=== PATIENT | male | born 1970 | race Caucasian/White ===

== ENCOUNTER 2020-10-11 04:11 | Inpatient (IN) | payer MEDICARE ==
[~2020-10-11] VITALS: Ht 188 cm; Wt 78.5 kg
[2020-10-11] MEDS ORDERED: GLIP10 PO (04:34)
[2020-10-11] MEDS ORDERED: TRAZ100 PO (04:34)
[2020-10-11] MEDS ORDERED: PROP60 PO (04:34)
[2020-10-11 04:50] LABS: Calcium, Ionized (POC) 1.03 mmol/L (1.10-1.46); Chloride (POC) 103 mmol/L (98-108); Creatinine (POC) 0.8 mg/dL (0.8-1.3); Glucose (ISTAT POC) 93 mg/dL (70-99); Hemoglobin (POC) 11.6 g/dL (13.5-17.5); Potassium (POC) 4.3 mmol/L (3.5-5.5); Sodium (POC) 140 mmol/L (135-148); Total CO2 (POC) 23 mmol/L (21-32)
[2020-10-11 05:38] LABS: BASOPHILS ABSOLUTE AUTO 0.11 K/mm3 (0.00-0.23); BASOPHILS PERCENT AUTO 1 % (0-2); EOSINOPHILS ABSOLUTE AUTO 0.02 K/mm3 (0.00-0.68); EOSINOPHILS PERCENT AUTO 0 % (0-6); Hematocrit 34.4 % (37.0-53.0); Hemoglobin 11.8 g/dL (13.5-17.5); IMMATURE GRAN ABSOLUTE AUTO 0.04 K/mm3 (0.00-0.10); IMMATURE GRAN PERCENT AUTO 0 % (0-1); LYMPHOCYTES ABSOLUTE AUTO 1.59 K/mm3 (0.84-5.20); LYMPHOCYTES PERCENT AUTO 16 % (21-46); MONOCYTES ABSOLUTE AUTO 0.87 K/mm3 (0.16-1.47); MONOCYTES PERCENT AUTO 9 % (4-13); Mean Corpuscular HGB 33.1 pg (26.0-34.0); Mean Corpuscular HGB Conc 34.3 g/dL (31.5-36.5); Mean Corpuscular Volume 97 fL (80-100); Mean Platelet Volume 10.4 fL (9.1-12.4); NEUTROPHILS ABSOLUTE AUTO 7.18 K/mm3 (1.96-9.15); NEUTROPHILS PERCENT AUTO 73 % (41-73); Platelet Count 292 K/mm3 (150-400); RDW Coefficient Variation 14.6 % (11.7-14.2); RDW Standard Deviation 52.4 fL (35.1-46.3); Red Blood Cell Count 3.56 M/mm3 (4.30-5.90); White Blood Cell Count 9.81 K/mm3 (4.00-11.30)
[2020-10-11 06:09] LABS: Alanine Aminotransfer (ALT/SGP 20 U/L (12-78); Albumin, Blood 2.4 g/dL (3.4-5.0); Albumin/Globulin Ratio 0.5 (0.8-1.8); Alk Phos 52 U/L (50-136); Anion Gap 11 mmol/L (6-16); Aspartate Aminotrans (AST/SGOT 38 U/L (12-37); Bilirubin, Total 0.5 mg/dL (0.1-1.0); Blood Urea Nitrogen 19 mg/dL (8-24); Bun/Creatinine Ratio 31.4 (12.0-20.0); CO2, Blood 22 mmol/L (21-32); Calcium, Blood 7.7 mg/dL (8.5-10.1); Chloride, Blood 108 mmol/L (98-108); Creatinine, Blood 0.61 mg/dL (0.60-1.20); Ethanol (Alcohol), Blood, Med 130 mg/dL; Globulin, Blood 4.4 g/dL (2.2-4.0); Glomerular Filtration Rate >60 (60-); Glucose, Blood 82 mg/dL (70-99); Potassium, Blood 4.2 mmol/L (3.5-5.5); Sodium, Blood 141 mmol/L (136-145); Total Protein, Blood 6.8 g/dL (6.4-8.2); Troponin I 0.276 ng/mL (0.000-0.040)
--- NOTE | 2020-10-11 07:14 | NUR ---
ADMIT 0645 PT TO ROOM FROM ED. PRESENTS WITH AMS BUT RESPONDING. VSS. PT TRANSFERRED TO NEW BED. BRIEF CHANGED. PLACED ON TELE. ATTEMPTED TO GO OVER HEALTH HX BUT LITTLE SUCCESS DUE TO PT MENTATION. PT PRESENTS WITH LEG WOUNDS. JANAE MORRISON PRESENT WITH PT ON ADMISSION. BED ALARM IN PLACE. BED IN LOW POSITION. REPORT GIVEN TO DOROTHY Forbes
--- NOTE | 2020-10-11 16:39 | NUR ---
UPDATE PT REMAINS ORIENTED TO SELF AND PLACE, BUT UNABLE TO STATE DATE AND NOT ALWAYS FOLLOWING DIRECTIONS. VS STABLE. HR NSR. O2 SATS REMAIN ABOVE 90% ON RA. PT COMPLAINS OF PAIN WITH REPOSITIONING, BUT TOLERABLE AT REST. WOUNDS TO FEET CLEANED THIS SHIFT. PT HAS BEEN NPO SINCE BREAKFAST AWAITING ORTHO CONSULT. REPORT GIVEN TO MEDICAL FLOOR RN. PT TAKEN UP BY BED,
--- NOTE | 2020-10-11 17:33 | NUR ---
SHIFT SUMMARY PATIENT TO THE FLOOR FROM THE PCU LATE THIS SHIFT. PATIENT ALERT, ORIENTED X 2-3 THIS SHIFT. PATIENT ORIENTED TO THE ROOM, MADE COMFORTABLE. PATIENT DENIES NEEDS AT THIS TIME. PATIENT CURRENTLY LAYING IN BED RESTING.
--- NOTE | 2020-10-12 00:43 | NUR ---
PATIENT RESTING IN BED. BANANA BAG INFUSING AT 75mL/HR. CARBIDE DIE MAKER REPORTS NSR 72. PAIN IN LEFT WRIST WITH MOVEMENT. PATIENT HAVING SOME MILD ANXIETY AND FALLS BACK TO SLEEP. CIWA IS A 2. CALL LIGHT IN REACH.
[2020-10-12 05:07] LABS: BASOPHILS ABSOLUTE AUTO 0.07 K/mm3 (0.00-0.23); BASOPHILS PERCENT AUTO 1 % (0-2); EOSINOPHILS ABSOLUTE AUTO 0.07 K/mm3 (0.00-0.68); EOSINOPHILS PERCENT AUTO 1 % (0-6); Hematocrit 32.2 % (37.0-53.0); Hemoglobin 11.1 g/dL (13.5-17.5); IMMATURE GRAN ABSOLUTE AUTO 0.03 K/mm3 (0.00-0.10); IMMATURE GRAN PERCENT AUTO 0 % (0-1); LYMPHOCYTES ABSOLUTE AUTO 1.58 K/mm3 (0.84-5.20); LYMPHOCYTES PERCENT AUTO 20 % (21-46); MONOCYTES ABSOLUTE AUTO 0.71 K/mm3 (0.16-1.47); MONOCYTES PERCENT AUTO 9 % (4-13); Mean Corpuscular HGB 32.6 pg (26.0-34.0); Mean Corpuscular HGB Conc 34.5 g/dL (31.5-36.5); Mean Corpuscular Volume 95 fL (80-100); Mean Platelet Volume 10.2 fL (9.1-12.4); NEUTROPHILS ABSOLUTE AUTO 5.44 K/mm3 (1.96-9.15); NEUTROPHILS PERCENT AUTO 69 % (41-73); Platelet Count 173 K/mm3 (150-400); RDW Coefficient Variation 13.7 % (11.7-14.2); RDW Standard Deviation 47.8 fL (35.1-46.3)
--- NOTE | 2020-10-12 05:22 | NUR ---
SHIFT SUMMARY PATIENT HAD NO ACUTE CHANGES OBSERVED. AXOX 2-3 WITH FLAT AFFECT AND WITHDRAWN. TAKES MEDICATION WHOLE WITH WATER. CBG 318. PIV REMAINS INTACT. BANANA BAG INFUSING AT 75mL/HR. REPORTS PAIN IN LW WITH MOVEMENT ONLY. USES URINAL AT BEDSIDE. BED ALARM ON FOR BEING IMPULSIVE TRYING TO BED EXIT. PATIENT REMINDED TO USE CALL LIGHT. NOT FOLLOWING DIRECTIONS AT THIS TIME. CIWA SCORE 2. DENIES SOB AND N/V. CALL LIGHT IN REACH. BED IN LOWEST POSITION. WILL CONTINUE TO MONITOR UNTIL DAY SHIFT NURSE ASSUMES CARE.
[2020-10-12 05:42] LABS: Alanine Aminotransfer (ALT/SGP 20 U/L (12-78); Albumin, Blood 2.2 g/dL (3.4-5.0); Albumin/Globulin Ratio 0.5 (0.8-1.8); Alk Phos 55 U/L (50-136); Anion Gap 7 mmol/L (6-16); Aspartate Aminotrans (AST/SGOT 32 U/L (12-37); Bilirubin, Total 1.1 mg/dL (0.1-1.0); Blood Urea Nitrogen 10 mg/dL (8-24); Bun/Creatinine Ratio 17.1 (12.0-20.0); CO2, Blood 26 mmol/L (21-32); Chloride, Blood 99 mmol/L (98-108); Creatinine, Blood 0.58 mg/dL (0.60-1.20); Globulin, Blood 4.2 g/dL (2.2-4.0); Glomerular Filtration Rate >60 (60-); Glucose, Blood 199 mg/dL (70-99); Potassium, Blood 3.6 mmol/L (3.5-5.5); Sodium, Blood 132 mmol/L (136-145); Total Protein, Blood 6.4 g/dL (6.4-8.2)
--- NOTE | 2020-10-12 14:36 | NUR ---
ALERT TO SELF. THOUGHT HE WAS IN [place]. REPEATS QUESTIONS. NO TREMORS. DENIES ETOH OR STREET DRUGS FOR "QUITE SOME TIME."WOUNDS TO FEET CLEANED AND DRY DRESSING APPLIED. WOUND TO MEDIAL RT FOOT ODIFEROUS. PATIENT AWARE TO BE D'C AND WE ARE LOOKING FOR RIDE. WCTM
[2020-10-12] MEDS ORDERED: SULFAMETHOXAZO1 EAC1 PO (14:53)
--- NOTE | 2020-10-12 15:08 | NUR ---
REVIEW D'C. AWARE TO TAKE IN DISCHARGE MED REC TO PHARMACY FOR ONE RX TO BE FILLED. IV D'C WITH NO BRUISING OR SWELLING NOTED. ANSWER ALL QUESTIONS. WILL TAKE DOWN TO E.R ENTRANCE TO GET TAXI RIDE TO [facility].
--- NOTE | 2020-10-12 15:31 | NUR ---
PATIENT TAKEN DOWNSTAIRS AND STRAIGHT FROM W/C TO TAXI. [employer] PAY.
== END 2020-10-12 15:21 | disposition home or self-care (01) | DRG 897 ==
LOC: ER 04:11 → PCU 05:27 → MEDS 16:39
PROVIDERS: Emergency Medicine; ADMIT Internal Medicine
DX: F10.20 Alcohol dependence, uncomplicated (principal); E87.2 Acidosis; M86.8X7 Other osteomyelitis, ankle and foot; G31.2 Degeneration of nervous system due to alcohol; E11.621 Type 2 diabetes mellitus with foot ulcer; E11.69 Type 2 diabetes mellitus with other specified complication; L97.519 Non-pressure chronic ulcer of other part of right foot with unspecified severity; Z79.899 Other long term (current) drug therapy; E78.5 Hyperlipidemia, unspecified; Z89.421 Acquired absence of other right toe(s); F17.210 Nicotine dependence, cigarettes, uncomplicated; L97.529 Non-pressure chronic ulcer of other part of left foot with unspecified severity
CPT/HCPCS: 36415; 71045; 80047; 80053; 82947; 83605; 83690; 84484; 85014; 85025; 87040; 93005; 93010; 93306; 99285-25; A9270; G0480; J1650; J3411; J3475; J7042; J7120